=== PATIENT | female | born 1985 | race African-American/Black ===

== ENCOUNTER 2016-12-07 08:13 | Inpatient (IN) | payer OTHER ==
[~2016-12-07] VITALS: Ht 167.6 cm; Wt 112.5 kg
[2016-12-07 08:36] VITALS: BP 140/85
[2016-12-07] MEDS ORDERED: PRENATAL TABLE1 EAC2 PO (08:38)
[2016-12-07] MEDS ORDERED: VITAMIN D2000 UNIT PO (08:38)
[2016-12-07 08:48] LABS: ABSOLUTE BASOPHIL COUNT 0 /CUMM (0.0-0.2); ABSOLUTE EOSINOPHIL COUNT 0.1 /CUMM (0.0-0.7); ABSOLUTE LYMPH COUNT 1.9 /CUMM (1.2-3.4); BASOPHIL % 0.3 % (0.0-2.0); EOSINOPHIL % 1.3 % (0-5); GRANULOCYTE % 65.7 % (42.2-75.2); MEAN CORPUSCULAR HGB 32.5 PG (27.0-31.0); MEAN CORPUSCULAR VOLUME 98.6 FL (81.0-99.0); MEAN PLATELET VOLUME 8.1 FL (7.4-10.4); PLATELET COUNT 239 /CUMM (130-400); RBC DISTRIBUTION WIDTH 15.2 % (11.5-14.5); RED BLOOD CELL CT 3.76 /CUMM (4.20-5.40); WHITE BLOOD CELL COUNT 9.1 /CUMM (4.8-10.8)
--- NOTE | 2016-12-07 22:44 | History & Physical ---
General Information and HPI MD Statement: I have seen and personally examined JUSTINETOM and documented this H&P. The patient is a 31 year old female at [39] weeks and [2] days gestation who presented with a chief complaint of [induction of labor]. History of Present Illness: This patient is a 31-year-old 2 para 0 LMP 03/04/2016 EDC 12/09/2016 at 39 weeks and 5 days who presents for elective induction of labor. 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. Her genetic screening was negative for trisomy 21 and trisomy 18. It had been recommended at that time that she undergo a cardiac echo which she refused. MRI of the fetus confirmed agenesis of the corpus callosum. There were no other deformities noted until November 27 when she had a repeat ultrasound which showed shortened femur bones, mild right-sided pyelectasis with normal amniotic fluid and an original normal four-chamber view of the heart. There is mild left ventriculomegaly within the cranium measuring 1.4 cm. The patient and her and counseled extensively by perinatology as well as her primary OVEN TECHNICIAN as to the probability of some form of congenital syndrome and it has been recommended that she deliver at a tertiary care center. She however is adamant and is requesting to deliver at [facility]; pediatric services were notified and consulted and agreed that the patient would be able to deliver here safely however she is at risk for transfer of the to a local tertiary center if any problems arise. 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 EENTM: Reports: no symptoms. Cardiovascular: Reports: no symptoms. Respiratory: Reports: no symptoms. GI: Reports: no symptoms. Genitourinary: Reports: no symptoms. Musculoskeletal: Reports: no symptoms. Skin: Reports: no symptoms. Neurological/Psychological: Reports: no symptoms. Hematologic/Endocrine: Reports: no symptoms. Immunologic/Allergic: Reports: no symptoms. All Other Systems: Reviewed and Negative Exam & Diagnostic Data Last 24 Hrs of Vital Signs/I&O Vital Signs Date Time Temp Pulse Resp B/P B/P Pulse O2 O2 Flow FiO2 Mean Ox Delivery Rate 12/07 0836 140/85 Intake & Output 12/07 1600 12/07 0800 12/07 0000 Intake Total Output Total Balance Patient 248 lb Weight Obstetric Exam Wgt Gained During : 40 pounds Pelvimetry: Gynecoid Dilation (cm): 0 Effacement (%): 0 Station: -2 Membranes: intact Fluid: unknown Fundal Height (cm): 41 Multiple Gestation? No Contractions: Occasional #1 - FHR Baseline: 140 Category: 1 Estimated Weight: 7-1/2 Presentation: Cephalic Patient for Induction? Yes Coronel Score Coronel Score Response Value Cervix Position: posterior 0 Cervix Consistency: soft 2 Cervix Effacement: 0-30% 0 Cervix Dilation: closed 0 Cervix Station: -2 1 Total 3 Physical Exam: HEENT: Normocephalic atraumatic Neck: Soft supple no JVD no thyromegaly Chest: Clear to auscultation bilaterally Cardiovascular: Normal S1-S2 normal Abdomen: Gravid, cephalic, estimated weight 7/2 pounds Pelvic: Long thick closed posterior Extremities: No clubbing cyanosis or edema Neurologic: Nonfocal Labs Blood Type & Rh: A+ Antibody Screen: Immune Hct/Hgb & Platelets #1: 35.7 11.9, 299 Hct/Hgb & Platelets #2: 32, 10, 226 Rubella: Immune VDRL #1: Nonreactive VDRL #2: Nonreactive HbsAg: Negative HIV #1: Negative HIV #2 Negative 1 Hr P Group B Strep: Negative Initial Ultrasound: The normal limits Anatomy Ultrasound: Agenesis of the corpus callosum, mild bilateral pyelectasis Ultrasound for EFW: 74 Genetic Testing: Negative Last 24 Hrs of Labs/Robert: Laboratory Tests 12/07/16 0836: CBC w Diff NO MAN DIFF REQ, RBC 3.76 L, MCV 98.6, MCH 32.5 H, RDW 15.2 H, MPV 8.1, Gran % 65.7, Lymphocytes % 21.3, Monocytes % 11.4 H, Eosinophils % 1.3, Basophils % 0.3, Absolute Granulocytes 6.0, Absolute Lymphocytes 1.9, Absolute Monocytes 1.0 H, Absolute Eosinophils 0.1, Absolute Basophils 0, PUBS MCHC 33.0 , Urinalysis LIGHT H, Urine Color YEL, Urine Clarity HAZY H, Urine pH 6.5, Ur Specific [place] 1.020, Urine Protein NEG, Urine Ketones NEG, Urine Nitrite NEG, Urine Bilirubin NEG, Urine Urobilinogen 0.2, Ur Leukocyte Esterase NEG, Ur Microscopic SEDIMENT EXAMINED, Urine RBC RARE, Urine WBC 1-3 H, Ur Epithelial Cells MOD H, Urine Bacteria MOD H, Urine Mucus FEW, Urine Hemoglobin NEG, Urine Glucose 100 H Assessment/Plan Assessment/Plan: 39 week , 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 Core Measures/Miscellaneous Venous Thromboembolism VTE Risk Factors: / VTE Contraindications: No Contraindications VTE Diagnosis: No Beta Marty Is Beta Marty a Home Med? No Antibiotics Is Patient on Antibiotics? No
--- NOTE | 2016-12-08 12:40 | Labor & Delivery Summary ---
Delivery Summary Vaginal Delivery: Vaginal: spontaneous Episiotomy/Lacerations: Episiotomy/Lacerations: EPIS Type: RML Repair: 3-0 LAYERED Anesthesia: EPI Placenta: Placenta: spontanteous, normal, 3 vessel Anesthesia: EPI Baby's Weight: 7-4 Apgars - 1 Min: 8 Apgars - 5 Min: 8 Additional Comments: PEDI AT DELIVERY
[2016-12-08] MEDS ORDERED: IBUPROFEN800 M1 PO (18:33)
[2016-12-08] MEDS ORDERED: DOCUSATE SODIU100 M3 PO (18:33)
== END 2016-12-08 19:45 | DRG 775 ==
LOC: GNO 08:13
PROVIDERS: ADMIT Obstetrics & Gynecology
PROC: 10E0XZZ Delivery of Products of Conception, External Approach (ICD-10-PCS; principal; 2016-12-08)
PROC: 0W8NXZZ Division of Female Perineum, External Approach (ICD-10-PCS; 2016-12-08)
DX: O35.8XX0 Maternal care for other (suspected) fetal abnormality and damage, not applicable or unspecified (principal); Z37.0 Single live birth; Z3A.39 39 weeks gestation of pregnancy
CPT/HCPCS: GNOP; 36415; 81001; 87086; J0131; J0690; J1200; J2210; J3105; J7120